=== PATIENT | female | born 1980 | race Caucasian/White ===

== ENCOUNTER 2021-07-02 22:14 | Emergency (ER) | payer MEDICAID, OTHER ==
[~2021-07-02] VITALS: Ht 162.6 cm; Wt 59.0 kg
[2021-07-03 08:10] VITALS: BP 130/78
[2021-07-03 09:40] LABS: Amphetamine Screen, Urine POSITIVE (NEGATIVE); Barbiturate Scree,Urine NEGATIVE (NEGATIVE); Benzodiazephine Screen, Urine NEGATIVE (NEGATIVE); Cannabinoid Screen, Urine POSITIVE (NEGATIVE); Cocaine Screen, Urine NEGATIVE (NEGATIVE); Opiate Scree,Urine NEGATIVE (NEGATIVE); Phencyclidine Screen, Urine POSITIVE (NEGATIVE); Urine Bacteria NONE SEEN /hpf (None Seen); Urine Blood Negative /uL (Negative); Urine Mucus FEW (None Seen); Urine Specific Gravity 1.025 (1.001-1.035); Urine WBC 4 /hpf (0 - 5)
== END 2021-07-03 11:12 | disposition home or self-care (01) ==
LOC: ER 22:14 → EDBD 22:14 → EDSEX 22:14 → ER 07-03 11:12
DX: F41.9 Anxiety disorder, unspecified (principal); R42 Dizziness and giddiness; R51.9 Headache, unspecified
CPT/HCPCS: 80307; 81001; 81025; 93005